=== PATIENT | female | born 1980 | race African-American/Black ===

== ENCOUNTER 2019-12-22 05:14 | Day surgery (SDC) | payer OTHER ==
[~2019-12-22] VITALS: Ht 157.5 cm; Wt 8.2 kg
--- NOTE | ~2019-12-22 | OP ---
PATIENT NAME: GILA GARCIA MEDICAL RECORD: [id number] :84 LOCATION:[facility] ADMISSION DATE: SURGEON: RAMONE OGLESBY MD DATE OF OPERATION: 12/22/2019 PREOPERATIVE DIAGNOSIS: Neck mass. POSTOPERATIVE DIAGNOSIS: Neck mass. PROCEDURE: Excision of neck mass or cervical node biopsy. SURGEON: Ramone Oglesby MD ANESTHESIA: General orotracheal. BLOOD LOSS: 1 cc. SPECIMENS: Lymph node. DRAINS: None. COMPLICATIONS: None. DISPOSITION: Recovery stable. 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 PROCEDURE NOTE: She was brought to the operating room and placed in supine position, sedated and intubated by anesthesia. Head was extended slightly to expose the submental area. The skin was cleaned with alcohol and injected with of 0.25 cc of 1% lidocaine with 1:100,000 epinephrine. She was prepped and draped in the usual sterile fashion. A horizontal incision was made over the lymph node. This was taken down through subcutaneous fat and fascia to the lymph node, which was carefully dissected out with almost no bleeding. Node was sent completely intact to pathology with the diagnosis of small cell lymphoma versus reactive node. Tissue was sent for cultures as well as flow cytometry. The wound was carefully inspected, irrigated. It was clean and dry. No bleeding. The fascia was closed with interrupted 4-0 Vicryl. Skin was closed with running subcuticular 6-0 Prolene very carefully without traumatizing or ripping the skin edges. The skin incision was injected through the wound with less than a 0.25 cc of Depo-Medrol along the incision line on both sides. Steri-Strips and Mastisol were applied. She was awakened, extubated, and transported to recovery in good condition. No complications. TRANSINT:[id number] Voice Confirmation ID: [id number] DOCUMENT ID: [id number] RAMONE OGLESBY MD CC: [id number] DICTATION DATE: 12/22/19 1036 COMMISSARY WORKER: 12/22/19 [id number] [place] [address]
[2019-12-22 06:11] LABS: HCG SERUM NEGATIVE (NEGATIVE)
[2019-12-22 06:33] VITALS: BP 92/64; Ht 157.5 cm; Wt 8.2 kg
[2019-12-22 06:55] LABS: HEMATOCRIT 35.5 % (36.0-48.0); MCH 24.3 pg (26.0-34.0); MCV 78.4 fL (80.0-100.0); RBC 4.53 10x6/uL (4.00-5.40); RDW 14.8 % (11.5-14.5); WBC 6.8 10x3/uL (4.8-10.8)
--- NOTE | 2019-12-22 09:22 | HP ---
PATIENT: GILA GARCIA MEDICAL RECORD: [id number] ACCOUNT: [id number] LOCATION:[facility] : 84 ADMISSION DATE: 12/22/19 PCP: CALVIN JULIAN MD HISTORY AND PHYSICAL EXAMINATION HISTORY OF PRESENT ILLNESS: Gila is 39 years old. She has an enlarging mass, slightly left of midline in the submandibular submental area. Ultrasound suggested a lymph node. PAST MEDICAL HISTORY: Otherwise negative. PAST SURGICAL HISTORY: Keloid excision. CURRENT MEDICATIONS: None. ALLERGIES: No known drug allergies. PHYSICAL EXAMINATION: GENERAL: She is healthy-appearing. FACE: Normal, symmetric, no lesions. EYES: Sclerae and conjunctivae are normal. EARS: Canals and TMs are normal. NOSE: No mass, polyps or drainage. ORAL CAVITY AND OROPHARYNX: Normal. Floor of the mouth, tongue, base of the tongue is normal. NECK: She has got a mass, left of midline above the hyoid. CHEST: Clear. CARDIOVASCULAR: Regular rate and rhythm, no murmur. EXTREMITIES: Normal. IMPRESSION: Almost midline neck mass, multiple possibilities in the differential lymph node suggested on ultrasound has been enlarging. I recommended excision of the neck mass for pathology and possible thyroglossal duct cyst if that is what the intraoperative findings suggest and injection of the incision with steroids because of her history of keloid at the end of the procedure. TRANSINT:[id number] Voice Confirmation ID: [id number] DOCUMENT ID: [id number] RAMONE PLASCENCIA MD at 0922 CC: [id number] DICTATION DATE: 12/18/19 1108 UNDERGRADUATE INTERN: 12/18/19 1131 [facility] [address] [id number]
--- NOTE | 2019-12-22 12:14 | NUR ---
DC INSTRUCTIONS GIVEN TO PT. STATES UNDERSTANDING. DC'D IV CATH FULLY ITNACT.
--- NOTE | 2019-12-22 12:26 | NUR ---
PT LEFT UNIT VIA WC AT 1219
== END 2019-12-22 12:19 | disposition home or self-care (01) ==
LOC: D.PAN 05:14 → D.OPS 09:00 → D.PAN 09:00
PROVIDERS: Anesthesiology; ATTEND Otolaryngology
DX: R22.1 Localized swelling, mass and lump, neck (principal)